=== PATIENT | female | born 2000 | race American Indian/Alaskan Native ===

== ENCOUNTER 2018-06-03 17:56 | Emergency (ER) | payer OTHER ==
--- NOTE | 2018-06-03 20:36 | ED PDOC ---
HPI: SOB/CHF/COPD Time Seen by Provider: 06/03/18 19:21 Chief Complaint (Nursing): Shortness Of Breath Chief Complaint (Provider): Shortness Of Breath History Per: Patient History/Exam Limitations: no limitations Onset/Duration Of Symptoms: Days Current Symptoms Are (Timing): Still Present Additional Complaint(s): 18 year old female with no significant PMHx presents to the ER for an evaluation of SOB and chest pressure intermittently for 4-5 days. Approximately 5 days ago, she noticed an episode of chest heaviness where she experienced troubled breathing and felt she was not getting enough air. These mild episodes occur intermittently with activity or at rest. She spoke to her mother who is diagnosed with anxiety and feels she has a component of anxiety. 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 Also denies taking any medication, cough, nausea, vomiting, diarrhea, history of asthma, high blood pressure or depression. Past Medical History Reviewed: Historical Data, Nursing Documentation, Vital Signs Vital Signs: Last Vital Signs Temp 98 F 06/03/18 18:28 Pulse 71 06/03/18 18:28 Resp 18 06/03/18 18:28 BP 121/69 06/03/18 18:28 Pulse Ox 100 06/03/18 18:28 - Medical History PMH: No Chronic Diseases - Family History Family History: States: Unknown Family Hx - Social History Current smoker - smoking cessation education provided: No Alcohol: None Drugs: Denies - Allergies Allergies/Adverse Reactions: Allergies Allergy/AdvReac Type Severity Reaction Status Date / Time No Known Allergies Allergy Verified 06/03/18 18:28 Review of Systems ROS Statement: Except As Marked, All Systems Reviewed And Found Negative Constitutional: Negative for: Fever, Chills, Sweats Cardiovascular: Negative for: Palpitations Respiratory: Positive for: Shortness of Breath. Negative for: Cough Gastrointestinal: Negative for: Nausea, Vomiting, Abdominal Pain Physical Exam - Reviewed Nursing Documentation Reviewed: Yes Vital Signs Reviewed: Yes - Physical Exam Appears: Positive for: Well, Non-toxic, No Acute Distress Head Exam: Positive for: ATRAUMATIC, NORMAL INSPECTION, NORMOCEPHALIC Skin: Positive for: Normal Color, Warm, Dry. Negative for: Rash Eye Exam: Positive for: EOMI, Normal appearance, PERRL ENT: Positive for: Normal ENT Inspection Neck: Positive for: Normal, Painless ROM, Supple. Negative for: Decreased ROM Cardiovascular/Chest: Positive for: Regular Rate, Rhythm. Negative for: Murmur Respiratory: Positive for: Normal Breath Sounds. Negative for: Decreased Breath Sounds, Wheezing, Respiratory Distress Gastrointestinal/Abdominal: Positive for: Normal Exam, Soft. Negative for: Tenderness, Guarding, Rebound Neurologic/Psych: Positive for: Alert, Oriented (x3), Mood/Affect (appropriate). Negative for: Motor/Sensory Deficits - ECG O2 Sat by Pulse Oximetry: 100 (RA) Pulse Ox Interpretation: Normal Medical Decision Making Medical Decision Making: Time: 2002 Initial Plan: Urine Chest Two Views [RAD] Reevaluation Scribe Attestation: Documented by Orion Christianson, acting as a scribe for Melina Sharma PA-C Provider Scribe Attestation: All medical record entries made by the Scribe were at my direction and personally dictated by me. I have reviewed the chart and agree that the record accurately reflects my personal performance of the history, physical exam, medical decision making, and the department course for this patient. I have also personally directed, reviewed, and agree with the discharge instructions and disposition. Disposition - Clinical Impression Clinical Impression: Dyspnea - Patient ED Disposition Is Patient to be Admitted: No Counseled Patient/Family Regarding: Studies Performed, Diagnosis, Need For Followup - Disposition Disposition: Routine/Home Disposition Time: 22:06 Condition: STABLE Additional Instructions: Return to ER if you start to have worsening SOB or chest pain. F/u with your primary care physician for assessment of possible anxiety. Instructions: Shortness of Breath (Dyspnea) (DC) Forms: [employer] (Irish) Print Language: [place]
[2018-06-03 21:22] VITALS: RESP 16
[2018-06-03 22:07] VITALS: BP 122/79; PULSE 79; TEMP 98.1
[2018-06-04 01:09] VITALS: O2SAT 100
--- NOTE | 2018-06-04 08:55 | RAD ---
Date of service: 06/03/2018 HISTORY: Cough COMPARISON: No prior. TECHNIQUE: Chest PA and lateral FINDINGS: LINES AND TUBES: None. LUNG AND PLEURA: The lungs are well inflated and clear. No pleural effusion or pneumothorax. HEART AND MEDIASTINUM: The heart is not enlarged. No aortic atherosclerotic calcification present. The hilar and mediastinal contours are within normal limits. SKELETAL STRUCTURES: The bony structures are within normal limits for the patient's age. VISUALIZED UPPER ABDOMEN: Normal. OTHER FINDINGS: None. IMPRESSION: No active pulmonary disease.
== END 2018-06-03 22:06 | disposition home or self-care (01) ==
LOC: H.ER 17:56
DX: R06.00 Dyspnea, unspecified (principal); J44.9 Chronic obstructive pulmonary disease, unspecified